=== PATIENT | female | born 1990 | race Two or more races ===

== ENCOUNTER 2017-08-27 21:38 | Outpatient (CLI) | payer OTHER | END 2017-08-28 12:51 | disposition home or self-care (01) | LOC: OBS/DEL 21:38 | DX: O23.42 Unspecified infection of urinary tract in pregnancy, second trimester (principal); O60.02 Preterm labor without delivery, second trimester; O99.012 Anemia complicating pregnancy, second trimester; O46.8X2 Other antepartum hemorrhage, second trimester; Z34.02 Encounter for supervision of normal first pregnancy, second trimester ==

== ENCOUNTER 2017-12-22 10:37 | Outpatient (CLI) | payer OTHER | END 2017-12-22 18:42 | disposition still patient (30) | LOC: OBS/DEL 10:37 | DX: O47.1 False labor at or after 37 completed weeks of gestation (principal); Z34.03 Encounter for supervision of normal first pregnancy, third trimester ==

== ENCOUNTER 2017-12-22 18:39 | Inpatient (IN) | payer OTHER ==
[~2017-12-22] VITALS: Ht 154.9 cm; Wt 61.2 kg
== END 2017-12-25 18:27 | DRG 775 ==
LOC: LDR 18:39 → OB/GYN 12-23 12:33
PROC: 10E0XZZ Delivery of Products of Conception, External Approach (ICD-10-PCS; principal; 2017-12-23)
PROC: 0KQM0ZZ Repair Perineum Muscle, Open Approach (ICD-10-PCS; 2017-12-23)
PROC: 3E033VJ Introduction of Other Hormone into Peripheral Vein, Percutaneous Approach (ICD-10-PCS; 2017-12-23)
PROC: 4A033R1 Measurement of Arterial Saturation, Peripheral, Percutaneous Approach (ICD-10-PCS; 2017-12-23)
PROC: 4A1HXCZ Monitoring of Products of Conception, Cardiac Rate, External Approach (ICD-10-PCS; 2017-12-23)
DX: O70.1 Second degree perineal laceration during delivery (principal); Z37.0 Single live birth; Z3A.38 38 weeks gestation of pregnancy

== ENCOUNTER 2025-04-13 11:19 | Outpatient (CLI) | payer OTHER | END 2025-04-13 11:22 | disposition home or self-care (01) | LOC: MAMO-SONO 11:19 | PROVIDERS: ATTEND Obstetrics & Gynecology | DX: N60.11 Diffuse cystic mastopathy of right breast (principal); N60.12 Diffuse cystic mastopathy of left breast; Z80.3 Family history of malignant neoplasm of breast ==